=== PATIENT | female | born 2000 | race Caucasian/White ===

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

== ENCOUNTER → 2021-01-07 | Outpatient (CLI) | payer OTHER ==
--- NOTE | 2021-01-07 12:18 | REP ---
INDICATION: ANATOMY COMPARISON: 12/18/2020 TECHNIQUE: Transabdominal obstetrical ultrasound with color Doppler evaluation. FINDINGS: Examination demonstrates a single live intrauterine in breech presentation. motion is identified by technologist. Placenta is noted anterior and grade 0 without evidence for placenta previa or abruption. Amniotic fluid volume is normal. Cervix measures 3.6 cm in length and appears closed.. Gestational age by LMP and 1st ultrasound 20 weeks 1 day with VERITO 05/26/2021. Gestational age by current measurements 20 weeks 0 days with VERITO 05/27/2021. FHR equals 146 beats per minute. BPD: 4.5 cm at 19 weeks 4 days HC: 16.8 cm at 19 weeks 3 days AC: 14.9 cm at 20 weeks 1 day FL: 3.2 cm at 19 weeks 6 days HL: 3.3 cm at 20 weeks 6 days HC/AC: 1.13 Estimated weight 321 grams (36thpercentile). Anatomical assessment demonstrates normal structures including cranium, choroid plexus, cavum, cerebellum/posterior fossa, facial features, lungs, four-chamber heart/ventricular outflow tracts, diaphragm, stomach, cord insertion/three-vessel cord, kidneys/bladder, spine, and extremities. IMPRESSION: Single live intrauterine in breech presentation demonstrating appropriate interval growth. Anatomical assessment is complete and normal. <Electronically signed by Leo Chiang > 01/07/21 [id number]
== END ==
LOC: M WHC 10:58
PROVIDERS: ATTEND Advanced Practice Midwife
DX: Z34.82 Encounter for supervision of other normal pregnancy, second trimester (principal); Z3A.20 20 weeks gestation of pregnancy

== ENCOUNTER → 2021-01-20 | Outpatient (CLI) | payer OTHER | LOC: M LAB 12:06 | PROVIDERS: ATTEND Nurse Practitioner Family | DX: E06.3 Autoimmune thyroiditis (principal) ==

== ENCOUNTER → 2021-03-03 | Outpatient (CLI) | payer OTHER | LOC: M LAB 08:00 | PROVIDERS: ATTEND Nurse Practitioner Family | DX: E06.3 Autoimmune thyroiditis (principal) ==

== ENCOUNTER → 2021-03-03 | Outpatient (CLI) | payer OTHER ==
[2021-03-03 10:29] LABS: HEMATOCRIT 34.4 % (36.0-47.0); HEMOGLOBIN 11.4 g/dl (12.0-15.5); MEAN CORPUSCULAR HEMOGLOBIN 28.9 pg (27.0-33.0); MEAN CORPUSCULAR HGB CONC 33.1 g/dl (32.0-36.5); MEAN CORPUSCULAR VOLUME 87.3 fl (80.0-96.0); PLATELET COUNT, AUTOMATED 314 10^3/uL (150-450); RED BLOOD COUNT 3.94 10^6/uL (4.00-5.40); WHITE BLOOD COUNT 11.1 10^3/uL (4.0-10.0)
== END ==
LOC: M LAB 08:02
PROVIDERS: ATTEND Obstetrics & Gynecology
DX: Z36.89 Encounter for other specified antenatal screening (principal)

== ENCOUNTER → 2021-03-10 | Outpatient (CLI) | payer OTHER | LOC: M LAB 08:08 | PROVIDERS: ATTEND Advanced Practice Midwife | DX: O99.810 Abnormal glucose complicating pregnancy (principal) ==

== ENCOUNTER → 2021-04-04 | Outpatient (CLI) | payer OTHER | LOC: M LAB 12:24 | PROVIDERS: ATTEND Nurse Practitioner Family | DX: E06.3 Autoimmune thyroiditis (principal) ==

== ENCOUNTER → 2021-04-26 | Outpatient (REF) | payer OTHER, MEDICAID ==
[2021-04-28 21:07] LABS: HSV IgM TYPES 1&2 <0.91 Ratio (0.00-0.90); HSV TYPE I IgG SPECIFIC <0.91 index (0.00-0.90); HSV TYPE II IgG SPECIFIC <0.91 index (0.00-0.90)
== END ==
LOC: M LAB REF 16:29
PROVIDERS: ATTEND Obstetrics & Gynecology
DX: Z34.03 Encounter for supervision of normal first pregnancy, third trimester (principal); N76.0 Acute vaginitis

== ENCOUNTER → 2021-05-03 | Outpatient (REF) | payer OTHER, MEDICAID ==
[2021-05-03 15:13] LABS: GC DNA AMPLIFICATION NEGATIVE (NEGATIVE)
== END ==
LOC: M LAB REF 12:41
PROVIDERS: ATTEND Obstetrics & Gynecology
DX: A56.00 Chlamydial infection of lower genitourinary tract, unspecified (principal)

== ENCOUNTER → 2021-05-10 | Outpatient (REF) | payer OTHER, MEDICAID ==
[~2021-05-10] MED LIST changes: +ACET-683 PO; +BENZ200C70 PO; +CEPH25SS PO; +IBUP80TA PO; +LEVO300T21 PO; +LEVO50TA5 PO; +MULTTAB20 PO; +ONDA4TAB6 PO
[2021-05-10 17:23] LABS: ALT/SGPT 27 U/L (12-78); BILIRUBIN,TOTAL 0.2 MG/DL (0.2-1.0); CREATININE FOR GFR 0.54 MG/DL (0.55-1.30); LDH LACTATE DEHYDROGENASE 195 U/L (84-246); TOTAL PROTEIN,RANDOM URINE 45.1 MG/DL (0.0-12.0); URIC ACID 3.7 MG/DL (2.6-6.0)
[2021-05-10 17:47] LABS: HEMOGLOBIN 10.7 g/dl (12.0-15.5); MEAN CORPUSCULAR HEMOGLOBIN 26.3 pg (27.0-33.0); MEAN CORPUSCULAR HGB CONC 32.4 g/dl (32.0-36.5); MEAN CORPUSCULAR VOLUME 81.1 fl (80.0-96.0); PLATELET COUNT, AUTOMATED 299 10^3/uL (150-450); RED BLOOD COUNT 4.07 10^6/uL (4.00-5.40); WHITE BLOOD COUNT 9.8 10^3/uL (4.0-10.0)
== END ==
LOC: M LAB REF 16:25
PROVIDERS: ATTEND Obstetrics & Gynecology
DX: O12.13 Gestational proteinuria, third trimester (principal); Z3A.00 Weeks of gestation of pregnancy not specified

== ENCOUNTER → 2021-05-11 | Outpatient (REF) | payer OTHER, MEDICAID ==
[~2021-05-11] MED LIST changes: -ACET-683 PO; -BENZ200C70 PO; -CEPH25SS PO; -IBUP80TA PO; -LEVO300T21 PO; -LEVO50TA5 PO; -MULTTAB20 PO; -ONDA4TAB6 PO
[2021-05-12 12:17] LABS: URINE TOTAL PROTEIN 32.1 MG/DL (0-12)
[2021-05-13 10:32] LABS: TOTAL PROTEIN 24 HOUR URINE 353.1 MG/24HR (50-150)
== END ==
LOC: M LAB REF 11:13
PROVIDERS: ATTEND Obstetrics & Gynecology
DX: O12.13 Gestational proteinuria, third trimester (principal); Z3A.00 Weeks of gestation of pregnancy not specified

== ENCOUNTER 2021-05-21 23:09 | Inpatient (IN) | payer MEDICAID, OTHER ==
[~2021-05-21] VITALS: Ht 160 cm; Wt 106.4 kg
[2021-05-21] MEDS ORDERED: LEVO50TA5 PO (23:28)
[2021-05-21] MEDS ORDERED: MULTTAB20 PO (23:28)
[2021-05-21 23:34] VITALS: BP 147/85
[2021-05-21] MEDS ORDERED: HOME MED LIST COMPLETE! XX SCH (23:35)
[2021-05-22] VITALS (38 sets, daily range): BP systolic 102–172; BP diastolic 59–112
[2021-05-22] MEDS ORDERED: LACTATED RINGER'S 1000 ML IV STA (00:07)
[2021-05-22] MEDS: LR 1,000 ML IV SCH ×2 (00:34→07:41)
[2021-05-22 00:44] LABS: HEMATOCRIT 30.2 % (36.0-47.0); HEMOGLOBIN 9.9 g/dl (12.0-15.5); MEAN CORPUSCULAR HEMOGLOBIN 25.8 pg (27.0-33.0); MEAN CORPUSCULAR HGB CONC 32.8 g/dl (32.0-36.5); MEAN CORPUSCULAR VOLUME 78.6 fl (80.0-96.0); PLATELET COUNT, AUTOMATED 318 10^3/uL (150-450); RED BLOOD COUNT 3.84 10^6/uL (4.00-5.40); WHITE BLOOD COUNT 12.4 10^3/uL (4.0-10.0)
[2021-05-22] MEDS ORDERED: BUTORPHANOL 2 MG/ML INJ (J0595) IV ONE (01:25)
[2021-05-22] MEDS ORDERED: PROMETHAZINE INJ 25 MG/ML VIAL (J2550) IV ONE (01:25)
[2021-05-22] MEDS ORDERED: OXYTOCIN DRIP 30 UNITS in IV 1 EA IV SCH (04:30)
[2021-05-22] MEDS ORDERED: OXYTOCIN 30 UNITS IN 0.9% NaCl 500ML IV BAG (J2590) As Ordered ONE (04:31)
[2021-05-22] MEDS ORDERED: FENTANYL 2MCG/ML ROPIVACAINE 0.2% IN 0.9% NACL 100ML IVBAG As Ordered ONE (06:10)
[2021-05-22] MEDS ORDERED: REFRIGERATOR IV KEYS XX PRN (07:20)
[2021-05-22] MEDS ORDERED: ePHEDrine SULFATE 25 MG/5 ML(5MG/ML) SYRINGE IV PRN (07:20)
[2021-05-22] MEDS ORDERED: diphenhydrAMINE 50MG/ML VIAL (J1200) IV PRN (07:20)
[2021-05-22] MEDS ORDERED: FENTANYL/ROPIVACAINE/NACL BAG 100 ML EPIDURAL SCH (07:20)
[2021-05-22] MEDS ORDERED: LACTATED RINGER'S 1000 ML IV PRN (07:20)
[2021-05-22] MEDS ORDERED: ONDANSETRON 4MG/2ML VIAL IV PRN (07:20)
[2021-05-22] MEDS ORDERED: EPIDURAL COMMENT XX SCH (07:20)
[2021-05-22] MEDS ORDERED: NALOXONE INJ 0.4MG/1ML VIAL (J2310 PER 1MG) IV PRN (07:20)
[2021-05-22] MEDS ORDERED: EPIDURAL/PCA KEYS XX PRN (07:20)
[2021-05-22] MEDS ORDERED: RHOGAM 300 MCG (1500 IU) INJ (J2790) IM SCH (11:25)
[2021-05-22] MEDS ORDERED: IBUPROFEN 600MG TAB PO PRN (11:25)
[2021-05-22] MEDS ORDERED: ACETAMINOPHEN 500 MG TAB PO PRN (11:25)
[2021-05-22] MEDS ORDERED: IBUPROFEN 800 MG TAB PO PRN (11:25)
[2021-05-22] MEDS ORDERED: MEASLES,MUMPS,RUBELLA VACCINE INJ (MMR-II) (90707) SC SCH (11:25)
[2021-05-22] MEDS ORDERED: DOCUSATE SODIUM 100MG CAPSULE PO PRN (11:25)
[2021-05-22] MEDS ORDERED: METHYLERGONOVINE MALEATE 0.2 MG TAB PO PRN (11:25)
[2021-05-22] MEDS ORDERED: ACETAMINOPHEN TAB 650MG DOSE (2X325MG) PO PRN (11:25)
[2021-05-22 11:42] LABS: CORD GAS ABE V -7.3; CORD GAS HCO3 V 19.2 MEQ/L; CORD GAS O2 SAT V 58.9 %; CORD GAS PCO2 V 42.3 mmHg; CORD GAS PH V 7.275 UNITS; CORD GAS PO2 V 26.5 mmHg; CORD GAS SBC V 17.7 MEQ/L; CORD GAS TCO2 V 20.5 MEQ/L
[2021-05-22 11:43] LABS: CORD GAS HCO3 A 20.6 MEQ/L; CORD GAS O2 SAT A 59.1 %; CORD GAS PCO2 A 44.3 mmHg; CORD GAS PH A 7.286 UNITS; CORD GAS PO2 A 26.2 mmHg; CORD GAS SBC A 18.7 MEQ/L
[2021-05-23 06:00] VITALS: BP 132/79
[2021-05-23] MEDS: LEVOTHYROXINE 100MCG TABLET (0.1MG) PO SCH (06:03)
[2021-05-23] MEDS: PRENATAL VITAMINS CHEWABLE TABLET PO SCH (07:50)
[2021-05-23] MEDS ORDERED: BOOSTRIX/ADACEL VACCINE (DIPHTH/PERTUSS/ACELL/TETANUS) 0.5ML SYR IM ONE (09:00)
[2021-05-23 18:00] VITALS: BP 140/89
[2021-05-23 22:00] VITALS: BP 158/80
[2021-05-23] MEDS ORDERED: DIBUCAINE 1% OINTMENT 30GM TOP PRN (22:45)
[2021-05-24 06:00] VITALS: BP 140/78
[2021-05-24] MEDS: LEVOTHYROXINE 100MCG TABLET (0.1MG) PO SCH (06:13)
[2021-05-24] MEDS: PRENATAL VITAMINS CHEWABLE TABLET PO SCH (08:49)
[2021-05-24] MEDS ORDERED: IBUP80TA PO (10:15)
[2021-05-24] MEDS ORDERED: ACET-683 PO (10:15)
[2021-07-28] MEDS ORDERED: LEVO300T21 PO (17:55)
== END 2021-05-24 12:37 | disposition home or self-care (01) | DRG 560 ==
LOC: M LDO 23:09 → M LDI 05-22 00:07 → M OBS 05-22 14:02
PROVIDERS: ADMIT Obstetrics & Gynecology; ATTEND Obstetrics & Gynecology
PROC: 10E0XZZ Delivery of Products of Conception, External Approach (ICD-10-PCS; principal; 2021-05-22)
PROC: 10907ZC Drainage of Amniotic Fluid, Therapeutic from Products of Conception, Via Natural or Artificial Opening (ICD-10-PCS; 2021-05-22)
PROC: 0KQM0ZZ Repair Perineum Muscle, Open Approach (ICD-10-PCS; 2021-05-22)
DX: O99.214 Obesity complicating childbirth (principal); Z3A.39 39 weeks gestation of pregnancy; Z37.0 Single live birth; O70.1 Second degree perineal laceration during delivery

== ENCOUNTER 2021-07-04 20:43 | Emergency (ER) | payer OTHER ==
[~2021-07-04] VITALS: Ht 162.6 cm; Wt 95.1 kg
[~2021-07-04 20:43] MED LIST changes: +ACET-683 PO; +IBUP80TA PO; +LEVO50TA5 PO; +MULTTAB20 PO
[2021-07-04] MEDS ORDERED: KETOROLAC 30 MG/ML 1ML VIAL IV ONE (22:40)
[2021-07-04] MEDS ORDERED: ONDANSETRON 4MG/2ML VIAL IV ONE (22:40)
[2021-07-04] MEDS ORDERED: NS 1,000 ML IV ONE (22:40)
[2021-07-05 00:26] LABS: BASO % 0.2 % (0.0-1.0); EOS # 0.2 10^3/uL (0.0-0.5); HEMOGLOBIN 11.1 g/dl (12.0-15.5); LYMPH # 1.7 10^3/uL (1.5-5.0); LYMPH % 19.5 % (24.0-44.0); MEAN CORPUSCULAR HEMOGLOBIN 25.2 pg (27.0-33.0); MEAN CORPUSCULAR HGB CONC 31.7 g/dl (32.0-36.5); MEAN CORPUSCULAR VOLUME 79.4 fl (80.0-96.0); MONO # 0.7 10^3/uL (0.0-0.8); MONO % 8.6 % (2.0-8.0); NEUTROPHILS # 5.9 10^3/uL (1.5-8.5); NEUTROPHILS % 69.3 % (36.0-66.0); PLATELET COUNT, AUTOMATED 395 10^3/uL (150-450); RED BLOOD COUNT 4.41 10^6/uL (4.00-5.40); WHITE BLOOD COUNT 8.5 10^3/uL (4.0-10.0)
[2021-07-05 00:50] LABS: ALBUMIN 3.4 GM/DL (3.2-5.2); ALT/SGPT 46 U/L (12-78); BILIRUBIN,DIRECT < 0.1 MG/DL (0.0-0.2); BILIRUBIN,TOTAL 0.2 MG/DL (0.2-1.0); BLOOD UREA NITROGEN 10 MG/DL (7-18); CALCIUM LEVEL 8.8 MG/DL (8.5-10.1); CARBON DIOXIDE LEVEL 26 MEQ/L (21-32); CHLORIDE LEVEL 110 MEQ/L (98-107); CREATININE FOR GFR 0.71 MG/DL (0.55-1.30); GLUCOSE, FASTING 91 MG/DL (70-100); LIPASE 100 U/L (73-393); POTASSIUM SERUM 3.9 MEQ/L (3.5-5.1); SODIUM LEVEL 142 MEQ/L (136-145); TOTAL PROTEIN 7.2 GM/DL (6.4-8.2)
--- NOTE | 2021-07-05 01:34 | REPVR ---
PROCEDURE INFORMATION: Exam: CT Abdomen And Pelvis Without Contrast Exam date and time: 07/05/2021 12:40 AM Age: 21 years old Clinical indication: Abdominal pain; Flank; Right; Additional info: Right flank pain TECHNIQUE: Imaging protocol: Computed tomography of the abdomen and pelvis without contrast. Radiation optimization: All CT scans at this facility use at least one of these dose optimization techniques: automated exposure control; mA and/or kV adjustment per patient size (includes targeted exams where dose is matched to clinical indication); or iterative reconstruction. COMPARISON: OBS COMPLETE US 01/07/2021 11:11 AM FINDINGS: Liver: Normal. No mass. Gallbladder and bile ducts: Normal. No calcified stones. No ductal dilation. Pancreas: Normal. No ductal dilation. Spleen: Normal. No splenomegaly. Adrenal glands: Normal. No mass. Kidneys and ureters: Normal. No hydronephrosis. Stomach and bowel: Unremarkable. No obstruction. No mucosal thickening. Appendix: No evidence of appendicitis. Intraperitoneal space: Unremarkable. No free air. No significant fluid collection. Vasculature: Unremarkable. No abdominal aortic aneurysm. Lymph nodes: Scattered subcentimeter nonspecific mesenteric lymph nodes. Urinary bladder: Mild nonspecific urinary bladder wall thickening likely reflecting under distension. Reproductive: Ill-defined asymmetrically enlarged right adnexa can be further assessed with pelvic ultrasound if clinically indicated. Bones/joints: Unremarkable. No acute fracture. Soft tissues: Fat containing umbilical hernia. IMPRESSION: Ill-defined asymmetrically enlarged right adnexa can be further assessed with pelvic ultrasound if clinically indicated. No bowel obstruction. Normal appendix. No hydronephrosis or nephrolithiasis bilaterally. Electronically signed by: Miek Alonso On 07/05/2021 01:33:49 AM
[2021-07-05 01:51] VITALS: BP 144/91
--- NOTE | 2021-07-05 13:04 | ED PDOC ---
Post-Departure Follow-Up dr tapia faxed formal report of ct abd/p for fu Rigoberto Montano MD Jul 05, 2021 13:04
== END 2021-07-05 01:54 | disposition home or self-care (01) ==
LOC: M ED 20:43
DX: R93.5 Abnormal findings on diagnostic imaging of other abdominal regions, including retroperitoneum (principal); R10.9 Unspecified abdominal pain; E03.9 Hypothyroidism, unspecified; Z79.899 Other long term (current) drug therapy; Z79.890 Hormone replacement therapy; Z91.012 Allergy to eggs
CPT/HCPCS: 74176; 80048; 80076; 81001; 83690; 85025; 87086; 96361; 96374; 96375; 99284; J1885; J2405

== ENCOUNTER 2021-07-28 17:32 | Emergency (ER) | payer OTHER ==
[~2021-07-28] VITALS: Ht 160 cm; Wt 94.6 kg
[2021-07-28] MEDS ORDERED: LEVO300T21 (17:55)
[2021-07-28 20:52] LABS: RSV AMPLIFICATION NEGATIVE (NEGATIVE)
[2021-07-28 21:14] LABS: BASO % 0.3 % (0.0-1.0); EOS # 0.1 10^3/uL (0.0-0.5); EOS % 1.8 % (0.0-3.0); HEMATOCRIT 38.5 % (36.0-47.0); HEMOGLOBIN 12.5 g/dl (12.0-15.5); LYMPH # 1.8 10^3/uL (1.5-5.0); LYMPH % 28.7 % (24.0-44.0); MEAN CORPUSCULAR HEMOGLOBIN 24.6 pg (27.0-33.0); MEAN CORPUSCULAR HGB CONC 32.5 g/dl (32.0-36.5); MEAN CORPUSCULAR VOLUME 75.8 fl (80.0-96.0); MONO # 0.9 10^3/uL (0.0-0.8); MONO % 13.9 % (2.0-8.0); NEUTROPHILS # 3.4 10^3/uL (1.5-8.5); PLATELET COUNT, AUTOMATED 364 10^3/uL (150-450); RED BLOOD COUNT 5.08 10^6/uL (4.00-5.40); WHITE BLOOD COUNT 6.2 10^3/uL (4.0-10.0)
[2021-07-28 21:36] LABS: ALBUMIN 3.9 GM/DL (3.2-5.2); ALT/SGPT 49 U/L (12-78); BILIRUBIN,DIRECT < 0.1 MG/DL (0.0-0.2); BILIRUBIN,TOTAL 0.3 MG/DL (0.2-1.0); CK-MB VALUE MASS < 1.0 NG/ML (<3.6); CPK CREATINE PHOSPHOKINASE 61 U/L (26-192); LDH LACTATE DEHYDROGENASE 200 U/L (84-246); MB/CK RELATIVE INDEX 1.64 (< OR =4); TOTAL PROTEIN 8.7 GM/DL (6.4-8.2); TROPONIN I < 0.02 NG/ML (< 0.10)
[2021-07-28] MEDS ORDERED: ALBUTEROL 90 MCG/ACT 8GM HFA INHALER INH ONE (22:00)
[2021-07-28 22:01] LABS: BLOOD UREA NITROGEN 10 MG/DL (7-18); CALCIUM LEVEL 9.3 MG/DL (8.5-10.1); CARBON DIOXIDE LEVEL 25 MEQ/L (21-32); CHLORIDE LEVEL 108 MEQ/L (98-107); CREATININE FOR GFR 0.68 MG/DL (0.55-1.30); GLUCOSE, FASTING 89 MG/DL (70-100); POTASSIUM SERUM 4.2 MEQ/L (3.5-5.1); SODIUM LEVEL 139 MEQ/L (136-145)
[2021-07-28] MEDS ORDERED: ISOVUE-370 76% 100ML VIAL As Ordered ONE (22:03)
--- NOTE | 2021-07-28 22:35 | REPVR ---
PROCEDURE INFORMATION: Exam: XR Chest Exam date and time: 07/28/2021 9:24 PM Age: 21 years old Clinical indication: Other: Coronavirus workup TECHNIQUE: Imaging protocol: XR of the chest. Views: 1 view. COMPARISON: CR Chest, 2 view PA, Lat 10/10/2016 4:14 PM FINDINGS: Lungs: Clear. No consolidation. Pleural spaces: No pleural effusion. No pneumothorax. Heart/Mediastinum: Unremarkable. No cardiomegaly. Bones/joints: Unremarkable. IMPRESSION: No acute findings. Electronically signed by: Jay Philippe On 07/28/2021 22:35:21 PM
--- NOTE | 2021-07-28 22:43 | REPVR ---
PROCEDURE INFORMATION: Exam: CTA Chest With Contrast Exam date and time: 07/28/2021 10:17 PM Age: 21 years old Clinical indication: Shortness of breath; Additional info: SOB, elevated dimer, R/O pe TECHNIQUE: Imaging protocol: Computed tomographic angiography of the chest with contrast. 3D rendering (Not supervised by radiologist): MIP and/or 3D reconstructed images were created by the technologist. Radiation optimization: All CT scans at this facility use at least one of these dose optimization techniques: automated exposure control; mA and/or kV adjustment per patient size (includes targeted exams where dose is matched to clinical indication); or iterative reconstruction. Contrast material: ISOVUE 370; Contrast volume: 100 ml; Contrast route: INTRAVENOUS (IV); COMPARISON: CR PORTABLE CHEST X-RAY 07/28/2021 8:39 PM FINDINGS: Pulmonary arteries: Normal. No pulmonary emboli. Aorta: Unremarkable. No aortic aneurysm. No aortic dissection. Thyroid: The thyroid gland is mildly enlarged but is incompletely imaged. No masses are seen in the visualized portions of the thyroid gland. Lungs: Clear. No consolidation. No masses. Pleural spaces: No pneumothorax. No pleural effusion. Heart: Borderline cardiomegaly. No pericardial effusion. Lymph nodes: Unremarkable. No enlarged lymph nodes. Bones/joints: Unremarkable. No acute fracture. Soft tissues: Unremarkable. IMPRESSION: 1. No pulmonary embolism or acute findings. 2. Borderline cardiomegaly. 3. Enlarged thyroid gland, incompletely imaged. Thyroid ultrasound follow-up is recommended. Electronically signed by: Jay Philippe On 07/28/2021 22:42:55 PM
[2021-07-28 23:04] VITALS: O2SAT 98
[2021-07-29] MEDS ORDERED: BENZ200C70 PO (00:07)
[2021-07-29] MEDS ORDERED: ONDA4TAB6 PO (00:07)
[2021-07-29 01:55] VITALS: BP 117/68
--- NOTE | 2021-07-29 19:57 | ECGEPIP ---
[facility] - ED Test Date: 2021-07-28 Pat Name: ERIK LUNA Department: Room: - Gender: Female Technical Agronomist: ED : 2000 Requested By: CADE Dave PA-C Order Number: [id number] Reading MD: Hannah Fragoso Measurements Intervals [place] Rate: 102 P: 37 CO: 136 QRS: 13 QRSD: 80 T: 8 QT: 344 QTc: 448 Interpretive Statements Sinus tachycardia Nonspecific T wave abnormality prwp No prior Electronically Signed on 07-29-2021 19:57:26 EDT by Hannah Fragoso
--- NOTE | 2021-08-08 13:09 | ED PDOC ---
Post-Departure Follow-Up radiology report faxed to Hannah Lynn MD Aug 08, 2021 13:09
== END 2021-07-29 01:56 | disposition home or self-care (01) ==
LOC: M ED 17:32
DX: J06.9 Acute upper respiratory infection, unspecified (principal); B34.8 Other viral infections of unspecified site; Z20.822 Contact with and (suspected) exposure to COVID-19; J45.909 Unspecified asthma, uncomplicated; E03.9 Hypothyroidism, unspecified; Z91.012 Allergy to eggs; Z79.899 Other long term (current) drug therapy; Z79.890 Hormone replacement therapy
CPT/HCPCS: 36415; 71045; 71275; 80048; 80076; 82550; 82553; 83615; 85025; 85379; 86140; 87631; 93005; 94640; 99284; Q9967

== ENCOUNTER 2021-09-16 15:52 | Inpatient (IN) | payer OTHER ==
[~2021-09-16] VITALS: Ht 160 cm; Wt 96.3 kg
[~2021-09-16 15:52] MED LIST changes: +BENZ200C70 PO; +LEVO300T21 PO; +ONDA4TAB6 PO
[2021-09-16] MEDS ORDERED: ACETAMINOPHEN 325 MG TAB PO ONE (23:45)
[2021-09-17] MEDS ORDERED: KETOROLAC 30 MG/ML 1ML VIAL IV ONE (00:10)
[2021-09-17 00:35] LABS: BASO % 0.2 % (0.0-1.0); EOS # 0.1 10^3/uL (0.0-0.5); EOS % 1.2 % (0.0-3.0); HEMATOCRIT 34.6 % (36.0-47.0); HEMOGLOBIN 11.2 g/dl (12.0-15.5); LYMPH # 1.7 10^3/uL (1.5-5.0); LYMPH % 17.8 % (24.0-44.0); MEAN CORPUSCULAR HEMOGLOBIN 25.1 pg (27.0-33.0); MEAN CORPUSCULAR HGB CONC 32.4 g/dl (32.0-36.5); MEAN CORPUSCULAR VOLUME 77.4 fl (80.0-96.0); MONO # 0.8 10^3/uL (0.0-0.8); MONO % 8.5 % (2.0-8.0); NEUTROPHILS # 6.8 10^3/uL (1.5-8.5); PLATELET COUNT, AUTOMATED 376 10^3/uL (150-450); RED BLOOD COUNT 4.47 10^6/uL (4.00-5.40); WHITE BLOOD COUNT 9.4 10^3/uL (4.0-10.0)
[2021-09-17 00:57] LABS: BLOOD UREA NITROGEN 10 MG/DL (7-18); CALCIUM LEVEL 9.2 MG/DL (8.5-10.1); CARBON DIOXIDE LEVEL 24 MEQ/L (21-32); CHLORIDE LEVEL 107 MEQ/L (98-107); CREATININE FOR GFR 0.76 MG/DL (0.55-1.30); GLUCOSE, FASTING 96 MG/DL (70-100); POTASSIUM SERUM 3.9 MEQ/L (3.5-5.1); SODIUM LEVEL 139 MEQ/L (136-145)
[2021-09-17] MEDS ORDERED: LIDOCAINE 1% MDV 20ML VIAL SC ONE (01:10)
[2021-09-17] MEDS ORDERED: MORPHINE 2 MG/ML 1ML VIAL (J2270) IV ONE (01:40)
[2021-09-17] MEDS ORDERED: BENZ200C70 PO (01:52)
[2021-09-17] MEDS ORDERED: ONDA4TAB6 PO (01:54)
[2021-09-17] MEDS ORDERED: HOME MED LIST COMPLETE! XX SCH (02:00)
[2021-09-17] MEDS ORDERED: PIPERACILLIN/TAZOBACTAM SOD 3.375 GM in D5W MINI-BAG PLUS 50 ML IV ONE (02:05)
[2021-09-17] MEDS ORDERED: PERCOCET 5MG/325MG TAB PO PRN ×2 (02:05)
[2021-09-17] MEDS ORDERED: IBUPROFEN 600MG TAB PO PRN (02:05)
[2021-09-17] MEDS ORDERED: ISOVUE-370 76% 100ML VIAL As Ordered ONE (02:09)
[2021-09-17] MEDS ORDERED: CLINDAMYCIN 600 MG in IV 1 EA IV SCH (03:00)
[2021-09-17 04:00] LABS: GC DNA AMPLIFICATION NEGATIVE (NEGATIVE)
[2021-09-17 04:54] LABS: URINE PREG TEST NEGATIVE (NEGATIVE)
[2021-09-17 05:45] LABS: GC DNA AMPLIFICATION NEGATIVE (NEGATIVE)
[2021-09-17] MEDS ORDERED: AZITHROMYCIN 250MG TABLET PO ONE (06:45)
[2021-09-17 07:16] LABS: RSV AMPLIFICATION NEGATIVE (NEGATIVE)
[2021-09-17] MEDS ORDERED: PILL CUTTER 1 EACH XX ONE (07:23)
[2021-09-17] MEDS ORDERED: CEPH25SS PO (09:10)
[2021-09-17] MEDS ORDERED: IBUP-1022 PO (09:10)
[2021-09-17] MEDS ORDERED: LIDOCAINE 1% SDV 5ML VIAL SC SCH (09:20)
[2021-09-17 09:40] VITALS: BP 142/75
== END 2021-09-17 09:40 | disposition home or self-care (01) | DRG 518 ==
LOC: M ED 15:52 → ENRESERV 09-17 07:43 → M MS5PR 09-17 08:59
PROVIDERS: ADMIT Obstetrics & Gynecology; ATTEND Obstetrics & Gynecology
PROC: 0U9M0ZZ Drainage of Vulva, Open Approach (ICD-10-PCS; principal; 2021-09-17)
DX: N76.4 Abscess of vulva (principal); Z91.012 Allergy to eggs

== ENCOUNTER → 2021-11-07 | Outpatient (CLI) | payer OTHER ==
[~2021-11-07] MED LIST changes: +CEPH25SS PO
== END ==
LOC: M RAD 15:52
PROVIDERS: ATTEND Physician Assistant Medical
DX: M79.671 Pain in right foot (principal)

== ENCOUNTER → 2022-01-26 | Outpatient (REF) | payer OTHER ==
[2022-01-26 15:22] LABS: GC DNA AMPLIFICATION NEGATIVE (NEGATIVE)
== END ==
LOC: M SFHCPLAZ 12:42
PROVIDERS: ATTEND Internal Medicine Infectious Disease
DX: A74.9 Chlamydial infection, unspecified (principal)

== ENCOUNTER 2022-07-25 12:13 | Emergency (ER) | payer OTHER ==
[~2022-07-25] VITALS: Ht 160 cm; Wt 94.1 kg
[2022-07-25 13:03] LABS: BASO % 0.2 % (0.0-1.0); EOS % 0.6 % (0.0-3.0); HEMOGLOBIN 9.6 g/dl (12.0-15.5); LYMPH # 0.7 10^3/uL (1.5-5.0); MEAN CORPUSCULAR HGB CONC 33.1 g/dl (32.0-36.5); MEAN CORPUSCULAR VOLUME 81.7 fl (80.0-96.0); MONO # 0.5 10^3/uL (0.0-0.8); MONO % 9.4 % (2.0-8.0); NEUTROPHILS # 3.9 10^3/uL (1.5-8.5); PLATELET COUNT, AUTOMATED 268 10^3/uL (150-450); RED BLOOD COUNT 3.55 10^6/uL (4.00-5.40); WHITE BLOOD COUNT 5.1 10^3/uL (4.0-10.0)
[2022-07-25] MEDS ORDERED: MORPHINE 4 MG/ML 1ML VIAL/SYRINGE IV ONE (13:05)
[2022-07-25 14:10] LABS: BLOOD UREA NITROGEN 8 MG/DL (7-18); CALCIUM LEVEL 8.1 MG/DL (8.5-10.1); CARBON DIOXIDE LEVEL 22 MEQ/L (21-32); CHLORIDE LEVEL 110 MEQ/L (98-107); CREATININE FOR GFR 0.48 MG/DL (0.55-1.30); GLOMERULAR FILTRATION RATE > 60.0 (>60); GLUCOSE, FASTING 83 MG/DL (70-100); POTASSIUM SERUM 3.9 MEQ/L (3.5-5.1); SODIUM LEVEL 139 MEQ/L (136-145)
[2022-07-25 14:11] LABS: ALBUMIN 2.5 GM/DL (3.2-5.2); ALT/SGPT 29 U/L (12-78); BILIRUBIN,DIRECT < 0.1 MG/DL (0.0-0.2); BILIRUBIN,TOTAL 0.2 MG/DL (0.2-1.0); HCG, SERUM QUANTITATIVE 14916 MIU/ML; LIPASE 96 U/L (73-393); TOTAL PROTEIN 5.9 GM/DL (6.4-8.2)
[2022-07-25 14:44] VITALS: BP 109/62
== END 2022-07-25 14:47 | disposition admitted as inpatient to this hospital (09) ==
LOC: M ED 12:13
DX: O99.611 Diseases of the digestive system complicating pregnancy, first trimester (principal); R10.9 Unspecified abdominal pain; O99.330 Smoking (tobacco) complicating pregnancy, unspecified trimester; Z91.012 Allergy to eggs; Z3A.29 29 weeks gestation of pregnancy; F17.200 Nicotine dependence, unspecified, uncomplicated
CPT/HCPCS: 76811; 76820; 80048; 80076; 83690; 84702; 85025; 86850; 86900; 86901; 87635; 96374; 99284; J2270

== ENCOUNTER → 2022-08-08 | Outpatient (REF) | payer OTHER, MEDICAID ==
[2022-08-08 17:21] LABS: HEMATOCRIT 30.6 % (36.0-47.0); HEMOGLOBIN 10.1 g/dl (12.0-15.5); MEAN CORPUSCULAR HEMOGLOBIN 26.9 pg (27.0-33.0); MEAN CORPUSCULAR VOLUME 81.4 fl (80.0-96.0); PLATELET COUNT, AUTOMATED 334 10^3/uL (150-450); RED BLOOD COUNT 3.76 10^6/uL (4.00-5.40); WHITE BLOOD COUNT 8.8 10^3/uL (4.0-10.0)
[2022-08-08 18:37] LABS: HEPATITIS B SURFACE ANTIGEN NEGATIVE (NEGATIVE); HEPATITIS C VIRUS ABY INDEX < 0.0 INDEX (<0.8); HIV 1&2 SCREEN CENTAUR NEGATIVE (NEGATIVE)
== END ==
LOC: M LAB REF 16:27
PROVIDERS: ATTEND Obstetrics & Gynecology
DX: Z36.89 Encounter for other specified antenatal screening (principal)

== ENCOUNTER → 2022-08-11 | Outpatient (CLI) | payer OTHER ==
[2022-08-11 15:50] LABS: HEMATOCRIT 28.4 % (36.0-47.0); HEMOGLOBIN 9.4 g/dl (12.0-15.5); MEAN CORPUSCULAR HEMOGLOBIN 27.2 pg (27.0-33.0); MEAN CORPUSCULAR HGB CONC 33.1 g/dl (32.0-36.5); MEAN CORPUSCULAR VOLUME 82.1 fl (80.0-96.0); PLATELET COUNT, AUTOMATED 263 10^3/uL (150-450); RED BLOOD COUNT 3.46 10^6/uL (4.00-5.40); WHITE BLOOD COUNT 7.6 10^3/uL (4.0-10.0)
== END ==
LOC: M LAB 12:56
PROVIDERS: ATTEND Obstetrics & Gynecology
DX: Z36.89 Encounter for other specified antenatal screening (principal)

== ENCOUNTER → 2022-08-15 | Outpatient (CLI) | payer OTHER | LOC: M LAB 08:23 | PROVIDERS: ATTEND Obstetrics & Gynecology | DX: O99.810 Abnormal glucose complicating pregnancy (principal) ==

== ENCOUNTER → 2022-08-22 | Outpatient (REF) | payer OTHER, MEDICAID | LOC: M LAB REF 17:31 | PROVIDERS: ATTEND Obstetrics & Gynecology | DX: Z36.89 Encounter for other specified antenatal screening (principal) ==

== ENCOUNTER → 2022-09-05 | Outpatient (REF) | payer OTHER, MEDICAID | LOC: M LAB REF 16:35 | PROVIDERS: ATTEND Obstetrics & Gynecology | DX: Z36.85 Encounter for antenatal screening for Streptococcus B (principal) ==

== ENCOUNTER 2022-10-13 15:22 | Inpatient (IN) | payer OTHER ==
[~2022-10-13] VITALS: Ht 157.5 cm; Wt 95.5 kg
[2022-10-13] VITALS (18 sets, daily range): BP systolic 96–152; BP diastolic 55–86
[~2022-10-13 15:22] MED LIST changes: -FERR5MLUD PO; -PRENTAB9 PO
[2022-10-13] MEDS ORDERED: PRENTAB9 PO (16:04)
[2022-10-13] MEDS ORDERED: FERR5MLUD PO (16:04)
[2022-10-13] MEDS ORDERED: HOME MED LIST COMPLETE! XX SCH (16:10)
[2022-10-13] MEDS ORDERED: OXYTOCIN DRIP 30 UNITS in IV 1 EA IV PRN (17:00)
[2022-10-13] MEDS ORDERED: CARBOPROST TROMETHAMINE 250 MCG/ML AMP IM PRN (17:00)
[2022-10-13] MEDS ORDERED: LIDOCAINE 1% MDV 20ML VIAL INFIL PRN (17:00)
[2022-10-13] MEDS ORDERED: TRANEXAMIC ACID INJection 1,000 MG in NS 100 ML IV PRN (17:00)
[2022-10-13] MEDS ORDERED: OXYTOCIN INJ 10UNITS/ML 1ML VIAL IM PRN (17:00)
[2022-10-13] MEDS ORDERED: LACTATED RINGER'S 1000 ML IV STA (17:00)
[2022-10-13] MEDS ORDERED: PENICILLIN G POTASSIUM 5 MU IV 5 MU in D5W MINI-BAG PLUS 100 ML IV STA (17:00)
[2022-10-13] MEDS ORDERED: LR 1,000 ML IV SCH (17:00)
[2022-10-13] MEDS ORDERED: METHYLERGONOVINE MALEATE 0.2 MG/ML VIAL (J2210) IM PRN (17:00)
[2022-10-13 17:45] LABS: HEMATOCRIT 30.5 % (36.0-47.0); HEMOGLOBIN 9.8 g/dl (12.0-15.5); MEAN CORPUSCULAR HEMOGLOBIN 24.9 pg (27.0-33.0); MEAN CORPUSCULAR HGB CONC 32.1 g/dl (32.0-36.5); MEAN CORPUSCULAR VOLUME 77.6 fl (80.0-96.0); PLATELET COUNT, AUTOMATED 300 10^3/uL (150-450); RED BLOOD COUNT 3.93 10^6/uL (4.00-5.40); WHITE BLOOD COUNT 12.3 10^3/uL (4.0-10.0)
[2022-10-13] MEDS ORDERED: FENTANYL/ROPIVACAINE/NACL BAG 100 ML EPIDURAL SCH (18:45)
[2022-10-13] MEDS ORDERED: NALOXONE INJ 0.4MG/1ML VIAL IV PRN (18:45)
[2022-10-13] MEDS ORDERED: ONDANSETRON 4MG 2ML VIAL IV PRN (18:45)
[2022-10-13] MEDS ORDERED: diphenhydrAMINE 50MG/ML VIAL IV PRN (18:45)
[2022-10-13] MEDS ORDERED: EPIDURAL/PCA KEYS XX PRN (18:45)
[2022-10-13] MEDS ORDERED: ePHEDrine SULFATE 25 MG/5 ML(5MG/ML) SYRINGE IVP PRN (18:45)
[2022-10-13] MEDS ORDERED: LR 500 ML IV PRN (18:45)
[2022-10-13] MEDS ORDERED: FENTANYL 2MCG/ML ROPIVACAINE 0.2% IN 0.9% NACL 100ML IVBAG As Ordered ONE (18:48)
[2022-10-13] MEDS: PEN G POT 3,000,000 UNIT/50 ML 3,000,000 UNIT in IV 1 EA IV SCH (21:44)
[2022-10-14] VITALS (15 sets, daily range): BP systolic 98–137; BP diastolic 51–86
[2022-10-14] MEDS: PEN G POT 3,000,000 UNIT/50 ML 3,000,000 UNIT in IV 1 EA IV SCH (01:49)
[2022-10-14] MEDS ORDERED: OXYTOCIN 30UNITS IN 0.9% NaCl 500ML IV BAG As Ordered ONE (04:12)
[2022-10-14] MEDS ORDERED: IBUPROFEN 600MG TAB PO PRN (04:35)
[2022-10-14] MEDS ORDERED: DOCUSATE SODIUM 100MG CAPSULE PO PRN (04:35)
[2022-10-14] MEDS ORDERED: ACETAMINOPHEN TAB 650MG DOSE (2X325MG) PO PRN (04:35)
[2022-10-14] MEDS ORDERED: ACETAMINOPHEN 500 MG TAB PO PRN (04:35)
[2022-10-14] MEDS ORDERED: DIBUCAINE 1% OINTMENT 30GM TOP PRN (04:35)
[2022-10-14] MEDS ORDERED: RHOGAM 300MCG (1500IU) INJ IM SCH (04:35)
[2022-10-14] MEDS ORDERED: METHYLERGONOVINE MALEATE 0.2 MG TAB PO PRN (04:35)
[2022-10-14] MEDS: PRENATAL VITAMINS CHEWABLE TABLET PO SCH (09:00)
[2022-10-14] MEDS: IBUPROFEN 800 MG TAB PO PRN (09:54)
[2022-10-14] MEDS ORDERED: PILL CUTTER 1 EACH XX ONE (10:02)
[2022-10-15] MEDS: IBUPROFEN 800 MG TAB PO PRN (02:01)
[2022-10-15 05:42] VITALS: BP 107/62
[2022-10-15] MEDS: PRENATAL VITAMINS CHEWABLE TABLET PO SCH (09:00)
[2022-10-15 17:52] VITALS: BP 120/69
[2022-10-16 06:02] VITALS: BP 123/64
[2022-10-16] MEDS: PRENATAL VITAMINS CHEWABLE TABLET PO SCH (07:36)
[2022-10-16] MEDS ORDERED: MEASLES,MUMPS,RUBELLA VACCINE INJ (MMR-II) SC.IMMUN ONE (09:00)
[2022-10-16] MEDS ORDERED: IBUP80TA PO (12:52)
[2022-10-16] MEDS ORDERED: ACET-683 PO (12:52)
== END 2022-10-16 14:56 | disposition home or self-care (01) | DRG 560 ==
LOC: M LDO 15:22 → M LDI 16:49 → M OBS 10-14 06:52
PROVIDERS: ADMIT Advanced Practice Midwife; ATTEND Specialist
PROC: 10E0XZZ Delivery of Products of Conception, External Approach (ICD-10-PCS; principal; 2022-10-14)
PROC: 10907ZC Drainage of Amniotic Fluid, Therapeutic from Products of Conception, Via Natural or Artificial Opening (ICD-10-PCS; 2022-10-14)
DX: O36.5993 Maternal care for other known or suspected poor fetal growth, unspecified trimester, fetus 3 (principal); E03.9 Hypothyroidism, unspecified; Z3A.40 40 weeks gestation of pregnancy; O48.0 Post-term pregnancy; O99.284 Endocrine, nutritional and metabolic diseases complicating childbirth; Z91.012 Allergy to eggs; O99.824 Streptococcus B carrier state complicating childbirth; Z37.0 Single live birth

== ENCOUNTER → 2022-10-13 | Outpatient (CLI) | payer OTHER ==
[~2022-10-13] MED LIST changes: +FERR5MLUD PO; +PRENTAB9 PO
== END ==
LOC: M RAD 09:08
PROVIDERS: ATTEND Obstetrics & Gynecology
DX: O48.0 Post-term pregnancy (principal); Z3A.40 40 weeks gestation of pregnancy

== ENCOUNTER 2024-06-03 01:43 | Emergency (ER) | payer OTHER, SELFPAY ==
[~2024-06-03] VITALS: Ht 157.5 cm; Wt 91.1 kg
[~2024-06-03 01:43] MED LIST changes: +FERR5MLUD PO; +ONDA-282 PO; -ONDA4TAB6 PO; +PRENTAB9 PO
[2024-06-03 01:45] VITALS: TEMP 98.7
[2024-06-03 02:32] LABS: BASO % 0.1 % (0.0-1.0); EOS # 0.1 10^3/uL (0.0-0.5); EOS % 1.9 % (0.0-3.0); HEMOGLOBIN 12.3 g/dl (12.0-15.5); LYMPH # 2.3 10^3/uL (1.5-5.0); LYMPH % 30.5 % (24.0-44.0); MEAN CORPUSCULAR HEMOGLOBIN 28.5 pg (27.0-33.0); MEAN CORPUSCULAR HGB CONC 34.2 g/dl (32.0-36.5); MEAN CORPUSCULAR VOLUME 83.5 fl (80.0-96.0); MONO # 0.6 10^3/uL (0.0-0.8); MONO % 8.4 % (2.0-8.0); NEUTROPHILS # 4.4 10^3/uL (1.5-8.5); NEUTROPHILS % 58.8 % (36.0-66.0); PLATELET COUNT, AUTOMATED 312 10^3/uL (150-450); RED BLOOD COUNT 4.31 10^6/uL (4.00-5.40); WHITE BLOOD COUNT 7.5 10^3/uL (4.0-10.0)
[2024-06-03] MEDS ORDERED: dexAMETHasone 20MG/5ML VIAL As Ordered ONE (02:58)
[2024-06-03] MEDS ORDERED: diphenhydrAMINE 50MG/ML VIAL As Ordered ONE (02:58)
[2024-06-03 02:59] LABS: ALBUMIN 4.3 G/DL (3.2-5.2); ALKALINE PHOSPHATASE 67 U/L (46-116); ALT/SGPT 19 U/L (7.0-40); AST/SGOT 12 U/L (<34); BILIRUBIN,TOTAL 0.7 MG/DL (0.3-1.2); BLOOD UREA NITROGEN 12 MG/DL (9-23); CALCIUM LEVEL 8.9 MG/DL (8.5-10.1); CARBON DIOXIDE LEVEL 24 MMOL/L (20-31); CHLORIDE LEVEL 107 MMOL/L (98-107); CREATININE FOR GFR 0.65 MG/DL (0.55-1.30); GLOMERULAR FILTRATION RATE > 60.0 (>60); GLUCOSE, FASTING 88 MG/DL (60-100); POTASSIUM SERUM 3.6 MMOL/L (3.5-5.1); SODIUM LEVEL 138 MMOL/L (136-145); TOTAL PROTEIN 7.5 G/DL (5.7-8.2)
[2024-06-03 03:01] LABS: FREE THYROXINE INDEX 1.7 % (1.3-4.8); T UPTAKE 28.9 % (22.5-37.0); THYROID STIMULATING HORMONE 18.532 uIU/ML (0.55-4.78)
[2024-06-03] MEDS ORDERED: ISOVUE-370 76% 100ML VIAL As Ordered ONE (03:02)
[2024-06-03] MEDS: NS 1,000 ML IV ONE (03:18)
[2024-06-03] MEDS: diphenhydrAMINE 50MG/ML VIAL IV STA (03:18)
[2024-06-03] MEDS: dexAMETHasone 20MG/5ML VIAL IV ONE (03:18)
[2024-06-03 04:26] LABS: FREE T4 0.71 NG/DL (0.89-1.76)
[2024-06-03 04:30] VITALS: BP 104/76; O2SAT 96
[2024-06-03] MEDS ORDERED: LEVO100C PO (05:31)
[2024-06-03] MEDS ORDERED: PRED20TA PO (05:45)
[2024-06-03] MEDS: predniSONE 20 MG TAB PO ONE (05:46)
[2024-06-03] MEDS: LEVOTHYROXINE 100MCG TABLET (0.1MG) PO STA (05:46)
== END 2024-06-03 05:47 | disposition home or self-care (01) ==
LOC: M ED 01:43
DX: E03.9 Hypothyroidism, unspecified (principal); L50.9 Urticaria, unspecified; E06.3 Autoimmune thyroiditis; F32.A Depression, unspecified; F17.210 Nicotine dependence, cigarettes, uncomplicated; F10.10 Alcohol abuse, uncomplicated; Z91.012 Allergy to eggs; Z79.1 Long term (current) use of non-steroidal anti-inflammatories (NSAID); Z79.52 Long term (current) use of systemic steroids; Z79.810 Long term (current) use of selective estrogen receptor modulators (SERMs); Z79.899 Other long term (current) drug therapy
CPT/HCPCS: 70491; 80053; 84436; 84439; 84443; 84479; 85025; 87486; 87581; 87633; 87798; 93005; 96374; 99284; J1100; J1200; J7512; Q9967

== ENCOUNTER 2024-07-10 03:42 | Emergency (ER) | payer OTHER ==
[~2024-07-10] VITALS: Ht 160 cm; Wt 92.5 kg
[~2024-07-10 03:42] MED LIST changes: +LEVO100C PO; +PRED20TA PO
[2024-07-10] MEDS ORDERED: NAPR-837 PO (07:23)
[2024-07-10 08:27] VITALS: BP 116/62; TEMP 97.4; O2SAT 98
== END 2024-07-10 08:28 | disposition home or self-care (01) ==
LOC: M ED 03:42
DX: S43.492A Other sprain of left shoulder joint, initial encounter (principal); Y92.019 Unspecified place in single-family (private) house as the place of occurrence of the external cause; Y93.9 Activity, unspecified; Y99.9 Unspecified external cause status; E03.9 Hypothyroidism, unspecified; F41.9 Anxiety disorder, unspecified; F32.A Depression, unspecified; Z91.012 Allergy to eggs; Z79.1 Long term (current) use of non-steroidal anti-inflammatories (NSAID); Z79.899 Other long term (current) drug therapy

== ENCOUNTER → 2024-10-09 | Outpatient (REF) | payer OTHER ==
[~2024-10-09] MED LIST changes: +NAPR-837 PO
[2024-10-09 14:15] LABS: Trichomonas vaginalis (AMP) NOT DETECTED (NEGATIVE)
[2024-10-09 14:39] LABS: GC DNA AMPLIFICATION NEGATIVE (NEGATIVE)
== END ==
LOC: M LAB REF 12:27
PROVIDERS: ATTEND Physician Assistant
DX: Z11.9 Encounter for screening for infectious and parasitic diseases, unspecified (principal)

== ENCOUNTER → 2024-10-09 | Outpatient (REF) | payer OTHER ==
[2024-10-09 14:47] LABS: ALBUMIN 3.8 G/DL (3.2-5.2); ALKALINE PHOSPHATASE 65 U/L (35-104); ALT/SGPT 20 U/L (7.0-40); AST/SGOT 11 U/L (<34); BILIRUBIN,TOTAL 0.5 MG/DL (0.3-1.2); BLOOD UREA NITROGEN 17 MG/DL (9-23); CALCIUM LEVEL 9.7 MG/DL (8.5-10.1); CARBON DIOXIDE LEVEL 26 MMOL/L (20-31); CHLORIDE LEVEL 110 MMOL/L (98-107); CHOLESTEROL LEVEL 131 MG/DL (<200); CHOLESTEROL RISK RATIO 2.67 (<5); CREATININE FOR GFR 0.66 MG/DL (0.55-1.30); GLOMERULAR FILTRATION RATE > 60.0 (>60); GLUCOSE, FASTING 69 MG/DL (60-100); LDL CHOLESTEROL 66.6 MG/DL (<100); POTASSIUM SERUM 4.3 MMOL/L (3.5-5.1); SODIUM LEVEL 143 MMOL/L (136-145); TOTAL PROTEIN 7.8 G/DL (5.7-8.2); TRIGLYCERIDES LEVEL 77 MG/DL (<150)
[2024-10-09 14:48] LABS: TOTAL 25(OH) VITAMIN D 23.5 NG/ML (20.0-100.0)
[2024-10-09 14:49] LABS: THYROID STIMULATING HORMONE 24.189 uIU/ML (0.55-4.78)
[2024-10-09 14:50] LABS: FREE T4 0.77 NG/DL (0.89-1.76)
[2024-10-09 15:18] LABS: THYROGLOBULIN ANTIBODY > 500.0 U/ML (<60.0); THYROID PEROXIDASE ANTIBODY > 1300.0 U/ML (<60.0)
[2024-10-09 15:30] LABS: HEMOGLOBIN A1c 4.9 % (4.0-6.0)
== END ==
LOC: M LAB REF 13:57
PROVIDERS: ATTEND Physician Assistant
DX: E55.9 Vitamin D deficiency, unspecified (principal); E06.3 Autoimmune thyroiditis; E66.9 Obesity, unspecified; Z11.9 Encounter for screening for infectious and parasitic diseases, unspecified

== ENCOUNTER → 2024-11-20 | Outpatient (REF) | payer OTHER ==
[2024-11-20 15:51] LABS: THYROID STIMULATING HORMONE 18.514 uIU/ML (0.55-4.78); THYROXINE (T4) 5.2 UG/DL (4.5-10.9)
[2024-11-20 15:54] LABS: FREE THYROXINE INDEX 1.8 % (1.3-4.8); T UPTAKE 34.7 % (22.5-37.0)
== END ==
LOC: M LAB REF 13:01
PROVIDERS: ATTEND Physician Assistant
DX: E06.3 Autoimmune thyroiditis (principal)

== ENCOUNTER → 2024-12-31 | Outpatient (REF) | payer OTHER ==
[2024-12-31 14:04] LABS: FREE T4 0.72 NG/DL (0.89-1.76); THYROID STIMULATING HORMONE 13.944 uIU/ML (0.55-4.78)
[2024-12-31 14:07] LABS: BLOOD UREA NITROGEN 13 MG/DL (9-23); CALCIUM LEVEL 8.6 MG/DL (8.5-10.1); CARBON DIOXIDE LEVEL 22 MMOL/L (20-31); CHLORIDE LEVEL 108 MMOL/L (98-107); CREATININE FOR GFR 0.56 MG/DL (0.55-1.30); GLOMERULAR FILTRATION RATE > 60.0 (>60); GLUCOSE, FASTING 101 MG/DL (60-100); POTASSIUM SERUM 4.4 MMOL/L (3.5-5.1); SODIUM LEVEL 140 MMOL/L (136-145)
== END ==
LOC: M LAB REF 13:08
PROVIDERS: ATTEND Physician Assistant
DX: E06.3 Autoimmune thyroiditis (principal)

== ENCOUNTER → 2025-02-26 | Outpatient (REF) | payer OTHER ==
[~2025-02-26] MED LIST changes: +FERR300L12 PO; -FERR5MLUD PO; -LEVO100C PO; +LEVO100C2 PO
[2025-02-26 15:03] LABS: BLOOD UREA NITROGEN 17 MG/DL (9-23); CALCIUM LEVEL 8.7 MG/DL (8.5-10.1); CARBON DIOXIDE LEVEL 24 MMOL/L (20-31); CHLORIDE LEVEL 106 MMOL/L (98-107); CREATININE FOR GFR 0.57 MG/DL (0.55-1.30); GLOMERULAR FILTRATION RATE > 90.0 (>60); GLUCOSE, FASTING 99 MG/DL (60-100); POTASSIUM SERUM 4.6 MMOL/L (3.5-5.1); SODIUM LEVEL 139 MMOL/L (136-145); THYROID STIMULATING HORMONE 15.092 uIU/ML (0.55-4.78)
[2025-02-26 15:04] LABS: FREE T4 0.75 NG/DL (0.89-1.76)
== END ==
LOC: M LAB REF 14:31
PROVIDERS: ATTEND Physician Assistant
DX: E06.3 Autoimmune thyroiditis (principal)

== ENCOUNTER → 2025-05-12 | Outpatient (CLI) | payer OTHER | LOC: M RAD 10:49 | PROVIDERS: ATTEND Physician Assistant | DX: E06.3 Autoimmune thyroiditis (principal); E04.2 Nontoxic multinodular goiter ==

== ENCOUNTER → 2025-09-01 | Outpatient (REF) | payer OTHER ==
[~2025-09-01] MED LIST changes: -IBUP-1022 PO; +IBUP600T42 PO
[2025-09-01 12:51] LABS: CALCIUM LEVEL 8.7 MG/DL (8.5-10.1); CARBON DIOXIDE LEVEL 23 MMOL/L (20-31); CHLORIDE LEVEL 108 MMOL/L (98-107); CREATININE FOR GFR 0.61 MG/DL (0.55-1.30); FREE T4 0.78 NG/DL (0.89-1.76); GLOMERULAR FILTRATION RATE > 90.0 (>60); POTASSIUM SERUM 4.3 MMOL/L (3.5-5.1); SODIUM LEVEL 140 MMOL/L (136-145)
== END ==
LOC: M LAB REF 12:08
PROVIDERS: ATTEND Physician Assistant
DX: E06.3 Autoimmune thyroiditis (principal)